=== PATIENT | male | born 1990 | race Caucasian/White ===

== ENCOUNTER 2023-03-25 09:56 | Emergency (ER) | payer SELFPAY ==
[2023-03-25 10:02] VITALS: RESP 18; TEMP 99.2; BMI 25.5
[2023-03-25] MEDS ORDERED: ACETAMINOPHEN 500 MG TABLET (FP) PO ONE (10:54)
[2023-03-25] MEDS ORDERED: ACETAMINOPHEN 500 MG TABLET (FP) ONE (11:01)
[2023-03-25 13:00] VITALS: BP 112/71; PULSE 76
== END 2023-03-25 13:19 | disposition home or self-care (01) ==
LOC: JERFT 09:56
DX: R09.81 Nasal congestion (principal); R05.9 Cough, unspecified; M79.10 Myalgia, unspecified site; R68.83 Chills (without fever); J06.9 Acute upper respiratory infection, unspecified; J10.1 Influenza due to other identified influenza virus with other respiratory manifestations; Z20.822 Contact with and (suspected) exposure to COVID-19
CPT/HCPCS: 0241U-QW; 99283-25

== ENCOUNTER 2023-03-26 01:02 | Emergency (ER) | payer SELFPAY ==
[2023-03-26 01:07] VITALS: BP 148/83; PULSE 105; RESP 18; TEMP 102.5; BMI 28.6
[2023-03-26] MEDS ORDERED: ONDANSETRON *ODT* 4 MG TABLET SL ONE (02:56)
[2023-03-26] MEDS ORDERED: IBUPROFEN 400 MG TABLET (FP) PO ONE ×3 (02:56→03:11)
[2023-03-26] MEDS ORDERED: ONDANSETRON *ODT* 4 MG TABLET ONE (03:09)
== END 2023-03-26 03:38 | disposition home or self-care (01) ==
LOC: JER 01:02
DX: R53.1 Weakness (principal); M79.10 Myalgia, unspecified site; R11.0 Nausea; J11.1 Influenza due to unidentified influenza virus with other respiratory manifestations
CPT/HCPCS: 99283-25; Q0162